=== PATIENT | male | born 1985 | race Caucasian/White ===

== ENCOUNTER 2019-01-12 16:57 | Emergency (ER) | payer MEDICAID, MEDICARE ==
[~2019-01-12] VITALS: Ht 165.1 cm; Wt 63.6 kg
[~2019-01-12 16:57] MED LIST: CIPR500T4 PO; FERR-55 PO; HYDR-762 PO; IMAT400T19 PO; METR500T PO; ZOF8 PO
[2019-01-12 17:30] VITALS: Ht 165.1 cm; Wt 63.6 kg
[2019-01-12] MEDS ORDERED: IPRATROPIUM (NEB) 0.5 MG/2.5 ML AMP NEB STA (19:14)
[2019-01-12] MEDS ORDERED: ALBUTEROL 0.083% (NEB) 2.5 MG/3 ML AMP NEB STA (19:14)
[2019-01-12] MEDS ORDERED: BENZONATATE 100 MG CAP PO ONE (19:30)
[2019-01-12] MEDS ORDERED: ONDANSETRON 4 MG INJ IV STA (20:28)
[2019-01-12] MEDS ORDERED: morphine 4 MG/ML VIAL IV STA (20:28)
[2019-01-12] MEDS ORDERED: SOD CHLORIDE 0.9% 1,000 ML IV STA (20:28)
[2019-01-12] MEDS ORDERED: SOD CHLORIDE 0.9% 100 ML ONE (20:37)
[2019-01-12] MEDS ORDERED: IOHEXOL 300MG/ML 150 ML BTL ONE (20:37)
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
[2019-01-12] MEDS ORDERED: FAMO-96 PO (22:11)
[2019-01-12 22:24] VITALS: BP 121/82; PULSE 68; RESP 16
== END 2019-01-12 22:24 | disposition home or self-care (01) ==
LOC: FTE 16:57
DX: R10.30 Lower abdominal pain, unspecified (principal); R11.2 Nausea with vomiting, unspecified; R19.7 Diarrhea, unspecified; F17.210 Nicotine dependence, cigarettes, uncomplicated; Z85.038 Personal history of other malignant neoplasm of large intestine
CPT/HCPCS: 36415; 74177; 80053; 81003; 83690; 83880; 85025; 94664; 96374; 96375; 99285; J2270; J2405; J7030; Q9967